=== PATIENT | male | born 1995 | race Caucasian/White ===

== ENCOUNTER 2024-11-12 14:12 | Outpatient (CLI) | payer OTHER, SELFPAY | END 2024-11-12 14:13 | disposition home or self-care (01) | LOC: NFLDREF 11-17 08:01 | PROVIDERS: Visit Provider Family Medicine | DX: M79.661 Pain in right lower leg (principal) | CPT/HCPCS: 80053 ==

== ENCOUNTER 2024-11-12 14:41 | Outpatient (CLI) | payer OTHER, SELFPAY ==
--- NOTE | 2024-11-12 15:00 | CRLHL7_ITS ---
For Patients: As a result of the Century Cures Act, medical imaging exams and procedure reports are released immediately into your electronic medical record. You may view this report before your referring provider. If you have questions, please contact your health care provider. INDICATION: Right calf pain. TECHNIQUE: Ultrasound venous duplex lower right extremity. Compression venous exam was performed using meyer-scale, color Doppler, and spectral Doppler analysis. COMPARISON: None. FINDINGS: Deep veins: Sonographic imaging demonstrates the right common femoral, deep femoral, superficial femoral, popliteal, posterior tibial and the contralateral right common femoral veins to be fully compressible with normal color Doppler blood flow. Superficial veins: Greater saphenous vein is fully compressible. No popliteal cyst. IMPRESSION: Normal right lower extremity venous ultrasound, no sign of deep venous thrombosis. Dictated by Syd Gamboa MD @ 11/12/2024 3:44:49 PM (Electronically Signed)
== END 2024-11-12 14:42 | disposition home or self-care (01) ==
PROVIDERS: Visit Provider Family Medicine
DX: M79.661 Pain in right lower leg (principal)
CPT/HCPCS: 80053; 93971